=== PATIENT | male | born 1970 | race Caucasian/White ===

== ENCOUNTER → 2017-12-26 | Outpatient (CLI) | payer MEDICARE, MEDICAID ==
[~2017-12-26] MED LIST: BENZ2TAB10 PO; CLON.5 PO; CLON1TAB PO; DIVA500T35 PO; FLUP10TA2 PO; LITH300C3 PO; RISP3TAB6 PO
== END | disposition home or self-care (01) ==
LOC: LABPV 10:00
PROVIDERS: ATTEND Psychiatry & Neurology Psychiatry
DX: F20.9 Schizophrenia, unspecified (principal)

== ENCOUNTER 2018-10-25 10:19 | Inpatient (IN) | payer MEDICARE, MEDICAID ==
[~2018-10-25] VITALS: Ht 167.6 cm; Wt 78.9 kg
[~2018-10-25 10:19] MED LIST changes: +DIVA-78 PO; -DIVA500T35 PO
[2018-10-25] MEDS ORDERED: ZOLPIDEM TARTRATE 10 MG TABLET PO PRN (12:30)
[2018-10-25] MEDS ORDERED: HALOPERIDOL 5 MG TABLET PO PRN (12:30)
[2018-10-25] MEDS: LORazepam 2 MG TABLET PO PRN (12:46)
[2018-10-25] MEDS: ClonazePAM 0.5 MG TABLET PO SCH (14:31)
[2018-10-25 16:22] VITALS: BP 120/77
[2018-10-25] MEDS: LITHIUM CARBONATE 300 MG CAPSULE PO SCH (16:34)
[2018-10-25] MEDS: BENZTROPINE MESYLATE 2 MG TABLET PO SCH (16:34)
[2018-10-25] MEDS: DIVALPROEX SODIUM 500 MG ER TABLET PO SCH (16:34)
[2018-10-25] MEDS: ClonazePAM 1 MG TABLET PO SCH (20:36)
[2018-10-25] MEDS: RisperiDONE 3 MG TABLET PO SCH (20:36)
[2018-10-25] MEDS: FluPHENAZine HCL 10 MG TABLET PO SCH (20:36)
[2018-10-26 00:06] VITALS: BP 105/62
[2018-10-26 07:46] LABS: BASOPHILS % (AUTO) 0.3 % (0.0-2.0); EOSINOPHILS % (AUTO) 2.3 % (1.0-6.0); HEMATOCRIT 41.2 % (41-53); HEMOGLOBIN 13.6 g/dL (13.5-17.5); LYMPHOCYTES # (AUTO) 2.1 K/uL (1.0-4.8); LYMPHOCYTES % (AUTO) 27.9 % (22.0-44.0); MEAN CORPUSCULAR HEMOGLOBIN 31.6 pg (26.0-34.0); MEAN CORPUSCULAR VOLUME 96 fL (80-100); MONOCYTES # (AUTO) 0.8 K/uL (0.1-1.0); MONOCYTES % (AUTO) 10.3 % (2.0-9.0); NEUTROPHILS # (AUTO) 4.4 K/uL (1.8-7.7); NEUTROPHILS % (AUTO) 59.2 % (40.0-70.0); PLATELET COUNT (AUTO) 172 K/uL (150-450); RED BLOOD CELL COUNT(AUTO) 4.29 MIL/uL (4.50-5.90); RED CELL DISTRIBUTION WIDTH 14.8 % (11.5-14.5)
[2018-10-26 08:01] LABS: LITHIUM 0.48 mmol/L (0.60-1.20)
[2018-10-26 08:14] LABS: HEMOGLOBIN A1C 5.4 % (4.5-6.2)
[2018-10-26 08:19] VITALS: BP 114/79
[2018-10-26] MEDS: BENZTROPINE MESYLATE 2 MG TABLET PO SCH ×3 (08:21→16:14)
[2018-10-26] MEDS: ClonazePAM 0.5 MG TABLET PO SCH ×2 (08:21→15:05)
[2018-10-26] MEDS: LITHIUM CARBONATE 300 MG CAPSULE PO SCH ×3 (08:21→16:14)
[2018-10-26] MEDS: DIVALPROEX SODIUM 500 MG ER TABLET PO SCH ×2 (08:21→16:14)
[2018-10-26 08:28] LABS: ALANINE AMINOTRANSFERASE 12 U/L (12-78); ALKALINE PHOSPHATASE 41 U/L (46-116); ANION GAP 4 mmol/L (8-16); ASPARTATE AMINOTRANSFERASE 13 U/L (15-37); BILIRUBIN,TOTAL 0.4 mg/dL (0.1-1.0); CALCIUM, TOTAL 8.7 mg/dL (8.8-10.5); CARBON DIOXIDE 32 mmol/L (22-29); CHLORIDE 108 mmol/L (98-107); CHOL/HDL RATIO 1.7 (4.2-7.3); CHOLESTEROL 100 mg/dL (131-200); CREATININE 0.87 mg/dL (0.60-1.30); FREE T4 (FREE THYROXINE) 0.76 ng/dL (0.76-1.46); GLOMERULAR FILTR. RATE CALC > 60 mL/min (>60); GLUCOSE,RANDOM 74 mg/dL (70-110); HDL CHOLESTEROL 60 mg/dL (40-60); LDL CHOL (CALC.) 31 mg/dL (0-130); SODIUM SERUM 144 mmol/L (136-145); THYROID STIMULATING HORMONE 3.06 uIU/mL (0.36-3.74); TOTAL PROTEIN, SERUM 5.6 g/dL (6.4-8.2); TRIGLYCERIDES 45 mg/dL (15-150); UREA NITROGEN, BLOOD 17 mg/dL (7-18); VALPROIC ACID 38 mcg/mL (50-100)
[2018-10-26 16:21] VITALS: BP 112/77
[2018-10-26] MEDS: ClonazePAM 1 MG TABLET PO SCH (20:09)
[2018-10-26] MEDS: FluPHENAZine HCL 10 MG TABLET PO SCH (20:09)
[2018-10-26] MEDS: RisperiDONE 3 MG TABLET PO SCH (20:09)
[2018-10-27 05:35] VITALS: BP 114/74
[2018-10-27 06:05] VITALS: BP 116/76
[2018-10-27] MEDS: LORazepam 2 MG TABLET PO PRN (06:12)
[2018-10-27] MEDS: LITHIUM CARBONATE 300 MG CAPSULE PO SCH ×3 (08:20→16:09)
[2018-10-27] MEDS: DIVALPROEX SODIUM 500 MG ER TABLET PO SCH ×2 (08:20→16:09)
[2018-10-27] MEDS: BENZTROPINE MESYLATE 2 MG TABLET PO SCH ×3 (08:20→16:09)
[2018-10-27] MEDS: ClonazePAM 0.5 MG TABLET PO SCH ×2 (08:20→15:26)
[2018-10-27 08:21] VITALS: BP 110/72
[2018-10-27 16:07] VITALS: BP 102/69
[2018-10-27] MEDS: RisperiDONE 3 MG TABLET PO SCH (20:12)
[2018-10-27] MEDS: ClonazePAM 1 MG TABLET PO SCH (20:12)
[2018-10-27] MEDS: FluPHENAZine HCL 10 MG TABLET PO SCH (20:12)
[2018-10-28 06:27] VITALS: BP 111/73
[2018-10-28 08:12] VITALS: BP 108/72
[2018-10-28] MEDS: DIVALPROEX SODIUM 500 MG ER TABLET PO SCH ×2 (08:54→17:21)
[2018-10-28] MEDS: LITHIUM CARBONATE 300 MG CAPSULE PO SCH ×3 (08:54→17:21)
[2018-10-28] MEDS: ClonazePAM 0.5 MG TABLET PO SCH ×2 (08:54→14:10)
[2018-10-28] MEDS: BENZTROPINE MESYLATE 2 MG TABLET PO SCH ×3 (08:54→17:20)
[2018-10-28 16:13] VITALS: BP 108/69
[2018-10-28] MEDS: RisperiDONE 3 MG TABLET PO SCH (20:58)
[2018-10-28] MEDS: ClonazePAM 1 MG TABLET PO SCH (20:58)
[2018-10-28] MEDS: FluPHENAZine HCL 10 MG TABLET PO SCH (20:58)
[2018-10-29 05:54] VITALS: BP 119/74
[2018-10-29 08:14] VITALS: BP 118/63
[2018-10-29] MEDS: DIVALPROEX SODIUM 500 MG ER TABLET PO SCH ×2 (08:28→16:24)
[2018-10-29] MEDS: LITHIUM CARBONATE 300 MG CAPSULE PO SCH ×3 (08:28→16:24)
[2018-10-29] MEDS: ClonazePAM 0.5 MG TABLET PO SCH ×2 (08:28→15:13)
[2018-10-29] MEDS: BENZTROPINE MESYLATE 2 MG TABLET PO SCH ×3 (08:28→16:24)
[2018-10-29 16:09] VITALS: BP 108/70
[2018-10-29] MEDS: ClonazePAM 1 MG TABLET PO SCH (20:10)
[2018-10-29] MEDS: FluPHENAZine HCL 10 MG TABLET PO SCH (20:10)
[2018-10-29] MEDS: RisperiDONE 3 MG TABLET PO SCH (20:10)
[2018-10-30 01:04] VITALS: BP 111/63
[2018-10-30 07:55] LABS: LITHIUM 0.66 mmol/L (0.60-1.20)
[2018-10-30] MEDS ORDERED: DIVA500T52 PO (08:35)
[2018-10-30] MEDS: DIVALPROEX SODIUM 500 MG ER TABLET PO SCH (08:35)
[2018-10-30] MEDS: ClonazePAM 0.5 MG TABLET PO SCH (08:35)
[2018-10-30] MEDS: BENZTROPINE MESYLATE 2 MG TABLET PO SCH ×2 (08:35→12:27)
[2018-10-30] MEDS: LITHIUM CARBONATE 300 MG CAPSULE PO SCH ×2 (08:35→12:27)
[2018-10-30 09:29] VITALS: BP 106/62
== END 2018-10-30 13:05 | disposition home or self-care (01) | DRG 885 ==
LOC: B2X 12:27
PROVIDERS: ADMIT Psychiatry & Neurology Psychiatry; ATTEND Psychiatry & Neurology Psychiatry
DX: F20.0 Paranoid schizophrenia (principal); E44.1 Mild protein-calorie malnutrition; K21.9 Gastro-esophageal reflux disease without esophagitis; F17.200 Nicotine dependence, unspecified, uncomplicated; H10.9 Unspecified conjunctivitis; Z83.3 Family history of diabetes mellitus; Z68.28 Body mass index [BMI] 28.0-28.9, adult
CPT/HCPCS: 83036; 84439; 84443